=== PATIENT | female | born 1990 | race Two or more races ===

== ENCOUNTER 2024-03-24 14:54 | Inpatient (IN) | payer OTHER ==
[2024-03-24] MEDS ORDERED: ACETAMINOPHEN 325 MG TABLET (FP) ONE (16:24)
[2024-03-24] MEDS: ACETAMINOPHEN 325 MG TABLET (FP) PO ONE (16:52)
[2024-03-24 16:56] LABS: PH,URINE 6.5 (5.0-8.0); URINE APPEARANCE CLEAR; URINE BILIRUBIN NEGATIVE (NEGATIVE); URINE COLOR YELLOW; URINE GLUCOSE (UA) NEGATIVE (NEGATIVE); URINE KETONE NEGATIVE (NEGATIVE); URINE LEUK ESTERASE NEGATIVE (NEGATIVE); URINE NITRITE NEGATIVE (NEGATIVE); URINE PROTEIN TRACE (NEGATIVE)
[2024-03-24 16:57] LABS: HCG,QUALITATIVE URINE Negative
[2024-03-24] MEDS ORDERED: ACETAMINOPHEN INJECTION 100 ML IVPB ONE ×2 (18:14→21:38)
[2024-03-24] MEDS ORDERED: ONDANSETRON 4 MG/2 ML VIAL ONE (18:14)
[2024-03-24 18:18] LABS: BASO % 0.6 % (0-2.0); HEMATOCRIT 23.7 % (32.4-45.2); LYMPH % 19.2 % (8-40); MCHC 28.6 g/dl (32.0-36.0); MEAN CELL VOLUME 66.8 fl (80-96); MEAN PLT VOLUME 8.2 fl (7.5-11.1); MONO % 5.7 % (3.8-10.2); NEUT % 73.5 % (42.8-82.8); PLATELET COUNT 349 10^3/uL (134-434); RBC 3.55 M/mm3 (3.60-5.2); RDW 18.7 % (11.6-15.6); WHITE BLOOD COUNT 12.9 K/mm3 (4.0-10.0)
[2024-03-24 18:20] LABS: MCH 19.1 pg (25.7-33.7)
[2024-03-24] MEDS: ACETAMINOPHEN 1000 MG/100 ML BAG IVPB ONE ×2 (18:21→21:43)
[2024-03-24] MEDS: ONDANSETRON 4 MG/2 ML VIAL IVPUSH ONE (18:21)
[2024-03-24 18:22] LABS: HEMOGLOBIN 6.8 GM/dL (10.7-15.3)
[2024-03-24 18:36] LABS: POTASSIUM 3.8 mmol/L (3.5-5.1)
[2024-03-24 18:38] LABS: ALBUMIN 3.2 g/dl (3.4-5.0); BLOOD UREA NITROGEN 10.5 mg/dL (7-18); CALCIUM 9.5 mg/dL (8.5-10.1)
[2024-03-24 18:40] LABS: ANISOCYTOSIS 1+; MACROCYTOSIS 0
[2024-03-24 18:41] LABS: CREATININE 0.8 mg/dL (0.55-1.3)
[2024-03-24 18:43] LABS: BILIRUBIN,TOTAL 0.2 mg/dL (0.2-1); TOT PROT 7.4 g/dl (6.4-8.2)
[2024-03-24 18:48] LABS: BASO % 0.2 % (0-2.0); EOS % 1.7 % (0-4.5); HEMATOCRIT 22.2 % (32.4-45.2); LYMPH % 19.2 % (8-40); MCHC 28.7 g/dl (32.0-36.0); MEAN CELL VOLUME 66.7 fl (80-96); MEAN PLT VOLUME 7.5 fl (7.5-11.1); MONO % 5.9 % (3.8-10.2); PLATELET COUNT 329 10^3/uL (134-434); RBC 3.33 M/mm3 (3.60-5.2); RDW 18.6 % (11.6-15.6); WHITE BLOOD COUNT 11.5 K/mm3 (4.0-10.0)
[2024-03-24 18:49] LABS: MCH 19.2 pg (25.7-33.7)
[2024-03-24 18:51] LABS: HEMOGLOBIN 6.4 GM/dL (10.7-15.3)
[2024-03-24] MEDS ORDERED: morphine SULFATE 4 MG/ML VIAL ONE (20:58)
[2024-03-24] MEDS ORDERED: PIPERACILLIN/TAZOB 4.5 GM 4.5 GM/100 ML BAG IVPB ONE (20:58)
[2024-03-24] MEDS: morphine CARPU-JECT 4 MG/1 ML DISP.SYRIN IVPUSH ONE (21:02)
[2024-03-24] MEDS: PIPERACILLIN/TAZOB 4.5 GM 4.5 GM in DEXTROSE 5%-WATER 100 ML IVPB ONE (21:02)
[2024-03-24] MEDS ORDERED: ONDANSETRON 4 MG/2 ML VIAL IVPUSH PRN (23:19)
[2024-03-24] MEDS: DEXTROSE 5%-NORMAL SALINE 1,000 ML IV SCH (23:49)
[2024-03-24] MEDS: SODIUM CHLORIDE 1,000 ML IV STA (23:57)
[2024-03-25] MEDS: ACETAMINOPHEN 1000 MG/100 ML BAG IVPB PRN (04:43)
[2024-03-25] MEDS: PIPERACILLIN/TAZOB 3.375 GM 3.375 GM in DEXTROSE 5%-WATER - 50 ML IVPB SCH ×3 (04:43→17:32)
[2024-03-25] MEDS ORDERED: PROPOFOL 20 ML ONE (09:55)
[2024-03-25] MEDS ORDERED: FENTANYL CITRATE/PF 50 MCG/ML VIAL ONE ×3 (09:55→13:17)
[2024-03-25] MEDS ORDERED: ROCURONIUM BROMIDE 50 MG/5 ML SYRINGE ONE (09:55)
[2024-03-25] MEDS ORDERED: DEXAMETHASONE SOD PHOSPHATE 4 MG/1 ML VIAL ONE (09:55)
[2024-03-25] MEDS ORDERED: MIDAZOLAM HCL 2 MG/2 ML SINGLE DOSE VIAL ONE (09:55)
[2024-03-25] MEDS ORDERED: GLYCOPYRROLATE 0.2 MG/1 ML VIAL ONE (10:36)
[2024-03-25] MEDS ORDERED: KETOROLAC TROMETHAMINE 30 MG/1 ML VIAL ONE (10:36)
[2024-03-25] MEDS ORDERED: ONDANSETRON 4 MG/2 ML VIAL ONE (10:36)
[2024-03-25] MEDS: LACTATED RINGERS SOLUTION 1,000 ML/1,000 ML INFUS.BAG IV SCH (10:48)
[2024-03-25] MEDS ORDERED: BUPIVACAINE HCL/PF 0.25% (2.5MG/ML) 10 ML VIAL ONE (11:04)
[2024-03-25 11:07] LABS: RETICULOCYTES 1.45 % (0.5-1.5)
[2024-03-25] MEDS ORDERED: oxyCODONE HCL 5 MG TABLET PO PRN (11:18)
[2024-03-25] MEDS ORDERED: ONDANSETRON 4 MG/2 ML VIAL IVPUSH PRN ×2 (11:18→14:25)
[2024-03-25 12:00] LABS: BASO % 0.4 % (0-2.0); EOS % 1.7 % (0-4.5); HEMATOCRIT 28.5 % (32.4-45.2); HEMOGLOBIN 8.7 GM/dL (10.7-15.3); LYMPH % 12.1 % (8-40); MCH 21.9 pg (25.7-33.7); MCHC 30.5 g/dl (32.0-36.0); MEAN CELL VOLUME 71.6 fl (80-96); MEAN PLT VOLUME 7.3 fl (7.5-11.1); MONO % 5.2 % (3.8-10.2); NEUT % 80.6 % (42.8-82.8); PLATELET COUNT 309 10^3/uL (134-434); RBC 3.98 M/mm3 (3.60-5.2); RDW 22.5 % (11.6-15.6); WHITE BLOOD COUNT 11.9 K/mm3 (4.0-10.0)
[2024-03-25] MEDS ORDERED: LIDOCAINE HCL 1%, 10 MG/ML (20ML VIAL) ONE (12:16)
[2024-03-25] MEDS ORDERED: HYDROmorphone HCl 2 MG/ML VIAL ONE (12:16)
[2024-03-25] MEDS: LIDOCAINE HCL 1%, 10 MG/ML (20ML VIAL) NR ONE ×3 (12:19)
[2024-03-25] MEDS ORDERED: NEOSTIGMINE METHYLSULFATE 0.5 MG/1 ML - 10 ML MDV ONE (12:19)
[2024-03-25] MEDS: BUPIVACAINE HCL/PF 0.5% (5MG/ML) 10 ML VIAL IJ ONE ×3 (12:27)
[2024-03-25] MEDS ORDERED: SUGAMMADEX SODIUM 200 MG/2 ML VIAL ONE (12:59)
[2024-03-25] MEDS ORDERED: ACETAMINOPHEN INJECTION 100 ML IVPB ONE (14:35)
[2024-03-25] MEDS: ACETAMINOPHEN 1000 MG/100 ML BAG IVPB SCH (14:40)
[2024-03-25] MEDS: LACTATED RINGERS SOLUTION 1,000 ML IV SCH ×2 (14:50→16:31)
[2024-03-25] MEDS: oxyCODONE HCL 5 MG TABLET PO PRN (17:32)
[2024-03-25] MEDS ORDERED: PIPERACILLIN/TAZOB 3.375 GM 3.375 GM in DEXTROSE 5%-WATER - 50 ML IVPB SCH (18:00)
[2024-03-26 09:01] LABS: BASO % 0.6 % (0-2.0); EOS % 0.2 % (0-4.5); HEMATOCRIT 28.6 % (32.4-45.2); HEMOGLOBIN 8.8 GM/dL (10.7-15.3); LYMPH % 14.7 % (8-40); MCH 21.8 pg (25.7-33.7); MCHC 30.9 g/dl (32.0-36.0); MEAN CELL VOLUME 70.7 fl (80-96); MONO % 4.7 % (3.8-10.2); NEUT % 79.8 % (42.8-82.8); PLATELET COUNT 319 10^3/uL (134-434); RBC 4.04 M/mm3 (3.60-5.2); RDW 21.9 % (11.6-15.6); WHITE BLOOD COUNT 12.1 K/mm3 (4.0-10.0)
[2024-03-26 09:16] LABS: POTASSIUM 3.7 mmol/L (3.5-5.1)
[2024-03-26 09:24] LABS: CALCIUM 9.2 mg/dL (8.5-10.1)
[2024-03-26 09:25] LABS: BLOOD UREA NITROGEN 5.3 mg/dL (7-18)
[2024-03-26 09:27] LABS: CREATININE 0.5 mg/dL (0.55-1.3)
[2024-03-26 09:29] LABS: BILIRUBIN,TOTAL 0.5 mg/dL (0.2-1); TOT PROT 6.4 g/dl (6.4-8.2)
[2024-03-26 09:32] LABS: ALBUMIN 2.5 g/dl (3.4-5.0)
[2024-03-26] MEDS: HYDROmorphone HCl 2 MG/ML VIAL IVPB ONE (14:08)
[2024-03-26] MEDS: PIPERACILLIN/TAZOB 3.375 GM 3.375 GM in DEXTROSE 5%-WATER - 50 ML IVPB SCH (14:51)
[2024-03-26] MEDS: oxyCODONE HCL 5 MG TABLET PO PRN (16:14)
[2024-03-26] MEDS: ACETAMINOPHEN 325 MG TABLET (FP) PO SCH (16:16)
[2024-03-26] MEDS: HYDROmorphone HCl 2 MG/ML VIAL IVPB PRN (20:00)
[2024-03-27] MEDS: ONDANSETRON 4 MG/2 ML VIAL IVPUSH PRN (01:41)
[2024-03-27] MEDS: ONDANSETRON 4 MG/2 ML VIAL IVPUSH ONE (05:22)
[2024-03-27] MEDS: LACTATED RINGERS SOLUTION 1,000 ML IV SCH (09:48)
[2024-03-27] MEDS: ACETAMINOPHEN 1000 MG/100 ML BAG IVPB PRN (13:25)
[2024-03-27 16:41] LABS: PH,URINE 6.5 (5.0-8.0); URINE APPEARANCE CLEAR; URINE BILIRUBIN NEGATIVE (NEGATIVE); URINE COLOR YELLOW; URINE GLUCOSE (UA) NEGATIVE (NEGATIVE); URINE KETONE NEGATIVE (NEGATIVE); URINE LEUK ESTERASE NEGATIVE (NEGATIVE); URINE NITRITE NEGATIVE (NEGATIVE); URINE PROTEIN NEGATIVE (NEGATIVE)
[2024-03-27 20:30] LABS: BASO % 0.7 % (0-2.0); EOS % 1.1 % (0-4.5); HEMATOCRIT 28.9 % (32.4-45.2); HEMOGLOBIN 8.9 GM/dL (10.7-15.3); LYMPH % 18.7 % (8-40); MCH 21.9 pg (25.7-33.7); MCHC 30.7 g/dl (32.0-36.0); MEAN CELL VOLUME 71.2 fl (80-96); MEAN PLT VOLUME 7.9 fl (7.5-11.1); MONO % 6.3 % (3.8-10.2); NEUT % 73.2 % (42.8-82.8); PLATELET COUNT 380 10^3/uL (134-434); RBC 4.06 M/mm3 (3.60-5.2); RDW 22.8 % (11.6-15.6); WHITE BLOOD COUNT 11.8 K/mm3 (4.0-10.0)
[2024-03-27 20:50] LABS: POTASSIUM 3.6 mmol/L (3.5-5.1)
[2024-03-27 20:53] LABS: ALBUMIN 2.4 g/dl (3.4-5.0)
[2024-03-27 20:54] LABS: BLOOD UREA NITROGEN 7.8 mg/dL (7-18)
[2024-03-27 20:56] LABS: CREATININE 0.5 mg/dL (0.55-1.3); PHOSPHOROUS 3.9 mg/dL (2.5-4.9)
[2024-03-27 20:58] LABS: BILIRUBIN,TOTAL 0.5 mg/dL (0.2-1); TOT PROT 6.1 g/dl (6.4-8.2)
[2024-03-27 21:32] LABS: ANISOCYTOSIS 3+; MACROCYTOSIS 1+; OVALOCYTE 1+
[2024-03-28 08:41] VITALS: RESP 18
[2024-03-28 09:45] LABS: BASO % 0.7 % (0-2.0); EOS % 1.4 % (0-4.5); HEMATOCRIT 30.6 % (32.4-45.2); HEMOGLOBIN 9.4 GM/dL (10.7-15.3); LYMPH % 17.9 % (8-40); MCHC 30.6 g/dl (32.0-36.0); MEAN CELL VOLUME 71.9 fl (80-96); MEAN PLT VOLUME 7.9 fl (7.5-11.1); MONO % 6.8 % (3.8-10.2); NEUT % 73.2 % (42.8-82.8); PLATELET COUNT 405 10^3/uL (134-434); RBC 4.25 M/mm3 (3.60-5.2); RDW 22.8 % (11.6-15.6); WHITE BLOOD COUNT 9.8 K/mm3 (4.0-10.0)
[2024-03-28] MEDS ORDERED: HYDROmorphone HCl 2 MG/ML VIAL IVPB PRN (10:00)
[2024-03-28 10:04] LABS: POTASSIUM 3.6 mmol/L (3.5-5.1)
[2024-03-28 10:08] LABS: BLOOD UREA NITROGEN 5.6 mg/dL (7-18)
[2024-03-28 10:09] LABS: ALBUMIN 2.6 g/dl (3.4-5.0)
[2024-03-28 10:12] LABS: CREATININE 0.6 mg/dL (0.55-1.3)
[2024-03-28 10:13] LABS: BILIRUBIN,TOTAL 0.4 mg/dL (0.2-1); TOT PROT 6.7 g/dl (6.4-8.2)
[2024-03-28] MEDS: HYDROmorphone HCl 2 MG/ML VIAL IVPB ONE (10:32)
[2024-03-28] MEDS: FAMOTIDINE 20 MG/50 ML IVPB 20 MG/50 ML MG IVPB ONE (11:01)
[2024-03-28] MEDS: DEXTROSE 5%-0.45% SALINE 1,000 ML IV SCH (11:02)
[2024-03-28] MEDS: ACETAMINOPHEN 1000 MG/100 ML BAG IVPB ONE (13:20)
[2024-03-28] MEDS: oxyCODONE HCL 5 MG TABLET PO PRN (15:02)
[2024-03-28] MEDS: SIMETHICONE 80 MG TAB.CHEW (FP) PO PRN (15:03)
[2024-03-28] MEDS: HYDROmorphone HCl 2 MG/ML VIAL IVPB PRN (18:15)
[2024-03-29] MEDS: HYDROmorphone HCL CARPU-JECT 2 MG/1 ML DISP.SYRIN IVPB PRN ×2 (01:56→17:11)
[2024-03-29 08:46] LABS: PH,URINE 7.5 (5.0-8.0); URINE APPEARANCE CLEAR; URINE BILIRUBIN NEGATIVE (NEGATIVE); URINE COLOR YELLOW; URINE GLUCOSE (UA) NEGATIVE (NEGATIVE); URINE KETONE NEGATIVE (NEGATIVE); URINE LEUK ESTERASE NEGATIVE (NEGATIVE); URINE NITRITE NEGATIVE (NEGATIVE); URINE PROTEIN NEGATIVE (NEGATIVE)
[2024-03-29] MEDS: PANTOPRAZOLE SODIUM 40 MG VIAL IVPUSH SCH (09:29)
[2024-03-30 08:43] LABS: HEMATOCRIT 29.8 % (32.4-45.2); HEMOGLOBIN 8.9 GM/dL (10.7-15.3); MCH 21.9 pg (25.7-33.7); MCHC 29.8 g/dl (32.0-36.0); MEAN CELL VOLUME 73.4 fl (80-96); MEAN PLT VOLUME 8.3 fl (7.5-11.1); PLATELET COUNT 426 10^3/uL (134-434); RBC 4.06 M/mm3 (3.60-5.2); RDW 23.1 % (11.6-15.6); WHITE BLOOD COUNT 9.9 K/mm3 (4.0-10.0)
[2024-03-30 08:57] LABS: POTASSIUM 3.7 mmol/L (3.5-5.1)
[2024-03-30 09:01] LABS: BLOOD UREA NITROGEN 3.4 mg/dL (7-18)
[2024-03-30 09:02] LABS: ALBUMIN 2.7 g/dl (3.4-5.0); CALCIUM 9.2 mg/dL (8.5-10.1)
[2024-03-30 09:05] LABS: BILIRUBIN,TOTAL 0.4 mg/dL (0.2-1); CREATININE 0.6 mg/dL (0.55-1.3); TOT PROT 6.9 g/dl (6.4-8.2)
[2024-03-30] MEDS ORDERED: oxyCODONE HCL 5 MG TABLET PO PRN (11:20)
[2024-03-30] MEDS: KETOROLAC TROMETHAMINE 30 MG/1 ML VIAL IVPUSH SCH ×2 (11:28→19:30)
[2024-03-30] MEDS: ACETAMINOPHEN 1000 MG/100 ML BAG IVPB SCH ×2 (13:26→13:37)
[2024-03-31 09:19] LABS: BASO % 0.9 % (0-2.0); HEMATOCRIT 29.2 % (32.4-45.2); HEMOGLOBIN 9.1 GM/dL (10.7-15.3); LYMPH % 16.2 % (8-40); MCH 22.4 pg (25.7-33.7); MCHC 31.2 g/dl (32.0-36.0); MEAN CELL VOLUME 71.9 fl (80-96); MEAN PLT VOLUME 7.9 fl (7.5-11.1); MONO % 4.3 % (3.8-10.2); NEUT % 76.6 % (42.8-82.8); PLATELET COUNT 455 10^3/uL (134-434); RBC 4.06 M/mm3 (3.60-5.2); RDW 23.8 % (11.6-15.6); WHITE BLOOD COUNT 10.8 K/mm3 (4.0-10.0)
[2024-03-31 11:15] LABS: ANISOCYTOSIS 3+; MACROCYTOSIS 0
[2024-03-31] MEDS: guaiFENesin 600 MG TABLET.ER (FP) PO SCH (12:04)
[2024-03-31 14:13] VITALS: BMI 10.6
[2024-03-31] MEDS: POLYETHYLENE GLYCOL (HEALTHYLAX) 3350 17 GM PACKET PO SCH ×2 (16:26→22:17)
[2024-03-31] MEDS: SENNOSIDES 8.6MG TABLET (FP) PO SCH (22:17)
[2024-04-01 08:51] LABS: HEMATOCRIT 30.2 % (32.4-45.2); HEMOGLOBIN 8.9 GM/dL (10.7-15.3); MCH 21.5 pg (25.7-33.7); MCHC 29.4 g/dl (32.0-36.0); MEAN CELL VOLUME 73.3 fl (80-96); MEAN PLT VOLUME 8.5 fl (7.5-11.1); PLATELET COUNT 503 10^3/uL (134-434); RBC 4.12 M/mm3 (3.60-5.2); RDW 24.1 % (11.6-15.6); WHITE BLOOD COUNT 11.8 K/mm3 (4.0-10.0)
[2024-04-01 09:38] LABS: POTASSIUM 4.3 mmol/L (3.5-5.1)
[2024-04-01 09:40] LABS: ALBUMIN 2.8 g/dl (3.4-5.0); BLOOD UREA NITROGEN 14.4 mg/dL (7-18); CALCIUM 9.4 mg/dL (8.5-10.1)
[2024-04-01 09:43] LABS: CREATININE 0.7 mg/dL (0.55-1.3)
[2024-04-01 09:45] LABS: BILIRUBIN,TOTAL 0.3 mg/dL (0.2-1)
[2024-04-01 11:13] VITALS: PULSE 61
[2024-04-01 15:07] VITALS: BP 124/75; TEMP 98.4
== END 2024-04-01 15:26 | disposition home or self-care (01) | DRG 710 ==
LOC: JER 14:54 → JERBED 20:39 → J6S 03-25 00:46
PROVIDERS: ADMIT Internal Medicine; ATTEND Internal Medicine
PROC: 30233N1 Transfusion of Nonautologous Red Blood Cells into Peripheral Vein, Percutaneous Approach (ICD-10-PCS; 2024-03-24)
PROC: 0DTJ4ZZ Resection of Appendix, Percutaneous Endoscopic Approach (ICD-10-PCS; principal; 2024-03-25 11:00)
DX: A41.89 Other specified sepsis (principal); K35.33 Acute appendicitis with perforation, localized peritonitis, and gangrene, with abscess; D50.9 Iron deficiency anemia, unspecified; K62.5 Hemorrhage of anus and rectum; I10 Essential (primary) hypertension; K91.89 Other postprocedural complications and disorders of digestive system; K56.7 Ileus, unspecified; Y83.8 Other surgical procedures as the cause of abnormal reaction of the patient, or of later complication, without mention of misadventure at the time of the procedure; K59.00 Constipation, unspecified; R11.14 Bilious vomiting; D27.0 Benign neoplasm of right ovary; B95.2 Enterococcus as the cause of diseases classified elsewhere; B96.20 Unspecified Escherichia coli [E. coli] as the cause of diseases classified elsewhere; D72.829 Elevated white blood cell count, unspecified; N92.0 Excessive and frequent menstruation with regular cycle
CPT/HCPCS: 36415; 36430; 71045-TC-FY; 74018-TC-FY; 74177-TC; 80053; 81003; 82607; 82728; 82746; 83540; 83550; 83735; 84100; 84703; 85025; 85027; 85045; 86850; 86900; 86901; 86922; 87070; 87075; 87076; 87086; 87186; 87205; 88304-TC; 93005; 93010; 94760; 99285-25; J0131; P9038; P9058; Q9967

== ENCOUNTER 2024-04-15 17:07 | Observation (INO) | payer OTHER ==
[2024-04-15] MEDS ORDERED: ALBUTEROL SO4 0.5 % INH SOLN 2.5 MG/0.5 ML VIAL.NEB. NEB ONE (17:13)
[2024-04-15] MEDS ORDERED: IPRATROPIUM BR 0.02% 0.5 MG/2.5 ML VIAL.NEB. NEB ONE (17:13)
[2024-04-15] MEDS: ALBUTEROL SO4 2.5/IPRATROPIUM 0.5 INH SOL 3 ML VIAL.NEB. NEB SCH (17:15)
[2024-04-15] MEDS ORDERED: RAPID SEQUENCE INTUBATION KIT NR ONE (17:17)
[2024-04-15] MEDS ORDERED: EPINEPHrine/PF 1 MG/1 ML (1:1,000) AMPULE ONE (17:19)
[2024-04-15] MEDS: EPINEPHrine 1:1,000 1 MG/ML VIAL IM ONE (17:20)
[2024-04-15] MEDS ORDERED: METOCLOPRAMIDE HCL INJECTION 10 MG/2 ML VIAL ONE (17:29)
[2024-04-15] MEDS: SODIUM CHLORIDE 0.9% 1000 ML INFUS.BAG IV ONE (17:35)
[2024-04-15 17:46] LABS: VENOUS BASE EXCESS -0.3 mmol/L (-2-2); VENOUS O2 SATURATION 49.7 % (70-80); VENOUS PCO2 39.8 mmHg (38-52); VENOUS PH 7.405 (7.310-7.410)
[2024-04-15 17:52] LABS: BASO % 0.3 % (0-2.0); HEMATOCRIT 32.5 % (32.4-45.2); HEMOGLOBIN 10.1 GM/dL (10.7-15.3); MCH 23.5 pg (25.7-33.7); MCHC 31.2 g/dl (32.0-36.0); MEAN CELL VOLUME 75.4 fl (80-96); MEAN PLT VOLUME 8.4 fl (7.5-11.1); MONO % 7.2 % (3.8-10.2); NEUT % 58.5 % (42.8-82.8); PLATELET COUNT 385 10^3/uL (134-434); RBC 4.31 M/mm3 (3.60-5.2); RDW 26.2 % (11.6-15.6); WHITE BLOOD COUNT 8.5 K/mm3 (4.0-10.0)
[2024-04-15 17:58] LABS: INR 1.16 (0.83-1.09)
[2024-04-15 18:00] LABS: ACTIVATED PTT 31.4 SECONDS (25.2-36.5)
[2024-04-15] MEDS: METOCLOPRAMIDE HCL INJECTION 10 MG/2 ML VIAL IVPUSH ONE (18:07)
[2024-04-15 18:54] LABS: PH,URINE 5.5 (5.0-8.0); URINE APPEARANCE CLEAR; URINE BILIRUBIN NEGATIVE (NEGATIVE); URINE COLOR YELLOW; URINE GLUCOSE (UA) NEGATIVE (NEGATIVE); URINE KETONE NEGATIVE (NEGATIVE); URINE LEUK ESTERASE NEGATIVE (NEGATIVE); URINE NITRITE NEGATIVE (NEGATIVE); URINE PROTEIN NEGATIVE (NEGATIVE); URINE UROBILINOGEN 0.2 mg/dL (0.2-1.0)
[2024-04-15 18:55] LABS: OPIATES, URI NEGATIVE (NEGATIVE); PHENCYCLIDINE,URINE NEGATIVE (NEGATIVE)
[2024-04-15 18:56] LABS: METHADONE, UR NEGATIVE (NEGATIVE); URINE AMPHETAMINES NEGATIVE (NEGATIVE); URINE BENZODIAZEPINES NEGATIVE (NEGATIVE)
[2024-04-15] MEDS: ALBUTEROL SO4 2.5/IPRATROPIUM 0.5 INH SOL 3 ML VIAL.NEB. NEB ONE (18:58)
[2024-04-15 19:21] LABS: COCAINE, UR POSITIVE (NEGATIVE); URINE BARBITURATES NEGATIVE (NEGATIVE)
[2024-04-15 20:38] LABS: BASO % 0.6 % (0-2.0); EOS % 2.8 % (0-4.5); HEMATOCRIT 29.5 % (32.4-45.2); HEMOGLOBIN 9.3 GM/dL (10.7-15.3); LYMPH % 28.9 % (8-40); MCH 23.4 pg (25.7-33.7); MCHC 31.4 g/dl (32.0-36.0); MEAN CELL VOLUME 74.6 fl (80-96); MEAN PLT VOLUME 7.6 fl (7.5-11.1); MONO % 7.4 % (3.8-10.2); NEUT % 60.3 % (42.8-82.8); PLATELET COUNT 323 10^3/uL (134-434); RBC 3.95 M/mm3 (3.60-5.2); WHITE BLOOD COUNT 9.1 K/mm3 (4.0-10.0)
[2024-04-15] MEDS ORDERED: ACETAMINOPHEN INJECTION 100 ML IVPB ONE (21:34)
[2024-04-15] MEDS: ACETAMINOPHEN 1000 MG/100 ML BAG IVPB ONE (21:46)
[2024-04-15] MEDS: LACTATED RINGERS SOLUTION 1000 ML INFUS.BAG IV ONE (21:46)
[2024-04-15 22:17] LABS: ANISOCYTOSIS 2+; OVALOCYTE 1+; TEAR DROP CELLS 1+
[2024-04-15 22:19] LABS: PLATELET ESTIMATE ADEQUATE
[2024-04-15] MEDS ORDERED: SIMETHICONE 40 MG/0.6 ML BOTTLE PO PRN (23:31)
[2024-04-16] MEDS: PANTOPRAZOLE SODIUM 40 MG VIAL IVPUSH ONE (00:09)
[2024-04-16] MEDS: SIMETHICONE 80 MG TAB.CHEW (FP) PO ONE (00:09)
[2024-04-16 00:25] LABS: ERYTHROCYTE SEDIMENTATION RATE 24 mm/hr (0-20)
[2024-04-16] MEDS: LACTATED RINGERS SOLUTION 1,000 ML/1,000 ML INFUS.BAG IV SCH (00:29)
[2024-04-16] MEDS: MAG HYDROX/AL HYDROX/SIMETH 30 ML UNIT-DOSE CUP PO ONE (00:30)
[2024-04-16] MEDS: MINERAL OIL ENEMA 133 ML ENEMA RC ONE ×2 (00:56→05:51)
[2024-04-16] MEDS: MAGNESIUM CITRATE 300 ML BOTTLE PO ONE (00:56)
[2024-04-16] MEDS: PIPERACILLIN/TAZOB 3.375 GM 3.375 GM in DEXTROSE 5%-WATER - 50 ML IVPB SCH ×2 (01:23→15:44)
[2024-04-16 03:27] VITALS: BMI 26.4
[2024-04-16] MEDS: SIMETHICONE 40 MG/0.6 ML BOTTLE PO SCH (06:29)
[2024-04-16 06:49] LABS: BASO % 1.2 % (0-2.0); EOS % 3.1 % (0-4.5); HEMATOCRIT 24.4 % (32.4-45.2); HEMOGLOBIN 7.6 GM/dL (10.7-15.3); LYMPH % 41.9 % (8-40); MCH 23.6 pg (25.7-33.7); MCHC 31.3 g/dl (32.0-36.0); MEAN CELL VOLUME 75.6 fl (80-96); MEAN PLT VOLUME 8.5 fl (7.5-11.1); MONO % 6.3 % (3.8-10.2); NEUT % 47.5 % (42.8-82.8); PLATELET COUNT 258 10^3/uL (134-434); RBC 3.22 M/mm3 (3.60-5.2); RDW 25.9 % (11.6-15.6); WHITE BLOOD COUNT 5.7 K/mm3 (4.0-10.0)
[2024-04-16 07:26] LABS: POTASSIUM 3.9 mmol/L (3.5-5.1)
[2024-04-16 08:29] LABS: BLOOD UREA NITROGEN 5.5 mg/dL (7-18); MAGNESIUM 1.7 mg/dL (1.8-2.4)
[2024-04-16 08:35] LABS: PHOSPHOROUS 3.2 mg/dL (2.5-4.9)
[2024-04-16 08:36] LABS: CREATININE 0.5 mg/dL (0.55-1.3)
[2024-04-16 08:37] LABS: BILIRUBIN,TOTAL 0.3 mg/dL (0.2-1)
[2024-04-16 09:00] LABS: ALBUMIN 2.5 g/dl (3.4-5.0); CALCIUM 8.1 mg/dL (8.5-10.1); TOT PROT 5.1 g/dl (6.4-8.2)
[2024-04-16 09:12] LABS: CHLORIDE 106 mmol/L (98-107); POTASSIUM 5.1 mmol/L (3.5-5.1); SODIUM 136 mmol/L (136-145)
[2024-04-16 09:14] LABS: ANION GAP 12 mmol/L (4-13); BLOOD UREA NITROGEN 9.4 mg/dL (7-18); CALCIUM 9.4 mg/dL (8.5-10.1); CO2 18 mmol/L (21-32)
[2024-04-16 09:15] LABS: ALBUMIN 3.8 g/dl (3.4-5.0); GLUCOSE,RANDOM 93 mg/dL (74-106); MAGNESIUM 2.1 mg/dL (1.8-2.4)
[2024-04-16 09:17] LABS: CREATININE 0.8 mg/dL (0.55-1.3); SGPT/ALT 19 U/L (13-61)
[2024-04-16 09:18] LABS: SGOT/AST 41 U/L (15-37)
[2024-04-16 09:19] LABS: BILIRUBIN,TOTAL 0.3 mg/dL (0.2-1); TOT PROT 8.1 g/dl (6.4-8.2)
[2024-04-16 09:20] LABS: ALK PHOS 92 U/L (45-117)
[2024-04-16] MEDS: PANTOPRAZOLE SODIUM 40 MG VIAL IVPUSH SCH (10:40)
[2024-04-16 13:11] LABS: POTASSIUM 3.8 mmol/L (3.5-5.1)
[2024-04-16 13:14] LABS: CALCIUM 8.8 mg/dL (8.5-10.1)
[2024-04-16 13:15] LABS: BLOOD UREA NITROGEN 5.5 mg/dL (7-18)
[2024-04-16 13:18] LABS: CREATININE 0.6 mg/dL (0.55-1.3)
[2024-04-16] MEDS: MAGNESIUM SULF 50% (8.12 MEQ/2 ML-1 GM VIAL) IVPB ONE (17:00)
[2024-04-17 06:35] LABS: HEMATOCRIT 36.2 % (32.4-45.2); HEMOGLOBIN 11.5 GM/dL (10.7-15.3); MCH 24.6 pg (25.7-33.7); MCHC 31.9 g/dl (32.0-36.0); MEAN CELL VOLUME 77.2 fl (80-96); MEAN PLT VOLUME 8.9 fl (7.5-11.1); PLATELET COUNT 266 10^3/uL (134-434); RBC 4.69 M/mm3 (3.60-5.2); RDW 25.4 % (11.6-15.6); WHITE BLOOD COUNT 6.8 K/mm3 (4.0-10.0)
[2024-04-17 06:53] LABS: POTASSIUM 3.9 mmol/L (3.5-5.1)
[2024-04-17 06:54] LABS: CALCIUM 8.8 mg/dL (8.5-10.1)
[2024-04-17 06:56] LABS: BLOOD UREA NITROGEN 4.6 mg/dL (7-18); MAGNESIUM 2.2 mg/dL (1.8-2.4)
[2024-04-17 06:58] LABS: CREATININE 0.5 mg/dL (0.55-1.3)
[2024-04-17 06:59] LABS: PHOSPHOROUS 3.7 mg/dL (2.5-4.9)
[2024-04-17 07:00] LABS: BILIRUBIN,TOTAL 0.5 mg/dL (0.2-1); TOT PROT 6.8 g/dl (6.4-8.2)
[2024-04-17 07:27] LABS: ALBUMIN 3.1 g/dl (3.4-5.0)
[2024-04-17] MEDS: IRON SUCROSE INJECTION 200 MG in SODIUM CHLORIDE 100 ML IVPB ONE (08:55)
[2024-04-17] MEDS: PANTOPRAZOLE 40 MG TABLET PO SCH (09:07)
[2024-04-17] MEDS: POLYETHYLENE GLYCOL (HEALTHYLAX) 3350 17 GM PACKET PO SCH (09:08)
[2024-04-17 14:36] VITALS: BP 131/56; PULSE 55; RESP 19; TEMP 98.4
== END 2024-04-17 16:23 | disposition home or self-care (01) ==
LOC: JER 17:07 → JERBED 19:00 → J4S 23:35
PROVIDERS: ADMIT Internal Medicine; ATTEND Internal Medicine
PROC: 30233N1 Transfusion of Nonautologous Red Blood Cells into Peripheral Vein, Percutaneous Approach (ICD-10-PCS; principal; 2024-04-15)
PROC: 3E033NZ Introduction of Analgesics, Hypnotics, Sedatives into Peripheral Vein, Percutaneous Approach (ICD-10-PCS; 2024-04-15)
PROC: 3E0F7GC Introduction of Other Therapeutic Substance into Respiratory Tract, Via Natural or Artificial Opening (ICD-10-PCS; 2024-04-15)
PROC: 3E023GC Introduction of Other Therapeutic Substance into Muscle, Percutaneous Approach (ICD-10-PCS; 2024-04-15)
PROC: 3E0337Z Introduction of Electrolytic and Water Balance Substance into Peripheral Vein, Percutaneous Approach (ICD-10-PCS; 2024-04-15)
PROC: 3E03329 Introduction of Other Anti-infective into Peripheral Vein, Percutaneous Approach (ICD-10-PCS; 2024-04-15)
DX: R55 Syncope and collapse (principal); D64.9 Anemia, unspecified; N92.1 Excessive and frequent menstruation with irregular cycle; R10.13 Epigastric pain; Z90.49 Acquired absence of other specified parts of digestive tract; I10 Essential (primary) hypertension; F17.200 Nicotine dependence, unspecified, uncomplicated
CPT/HCPCS: 0241U-QW; 36415; 36430; 36511; 70450-TC; 71045-TC-FY; 71275-TC; 74177-TC; 76830-TC; 80048; 80053; 80307; 81003; 82272; 82550; 82803; 83605; 83690; 83735; 84100; 84443; 84484; 84703; 85025; 85027; 85610; 85651; 85730; 86140; 86850; 86900; 86901; 86922; 87040; 87086; 93005; 93010; 93306-TC; 94640; 96361; 96365; 96367; 96372; 96375; 96376; 99285-25; G0378; J0131; J1756; P9038; P9058; Q9967

== ENCOUNTER 2025-02-12 22:56 | Emergency (ER) | payer OTHER ==
[2025-02-12 23:00] VITALS: BP 103/64; PULSE 86; RESP 18; TEMP 98.1; BMI 24.2
[2025-02-12] MEDS: ONDANSETRON 4 MG/2 ML VIAL IVPUSH ONE (23:22)
[2025-02-12] MEDS: FAMOTIDINE 20 MG/50 ML IVPB 20 MG/50 ML MG IVPB ONE (23:22)
[2025-02-12] MEDS: ACETAMINOPHEN 1000 MG/100 ML BAG IVPB ONE (23:22)
[2025-02-12] MEDS ORDERED: ACETAMINOPHEN INJECTION 100 ML ONE (23:23)
[2025-02-12] MEDS ORDERED: ONDANSETRON 4 MG/2 ML VIAL ONE (23:24)
[2025-02-12] MEDS ORDERED: FAMOTIDINE 20 MG/50 ML IVPB 20 MG/50 ML MG IVPB ONE (23:24)
[2025-02-12 23:27] LABS: HCG,QUALITATIVE URINE Negative
[2025-02-12 23:36] LABS: EPI CELLS 6 /uL (0-25.1); HYALINE CASTS 0 /uL (0-3.1); PH,URINE 5.5 (5.0-8.0); URINE APPEARANCE CLEAR; URINE BACTERIA 81 /uL (0-1359); URINE BILIRUBIN NEGATIVE (NEGATIVE); URINE COLOR YELLOW; URINE GLUCOSE (UA) NEGATIVE (NEGATIVE); URINE KETONE NEGATIVE (NEGATIVE); URINE LEUK ESTERASE NEGATIVE (NEGATIVE); URINE NITRITE NEGATIVE (NEGATIVE); URINE PROTEIN NEGATIVE (NEGATIVE); URINE RBC 31 /uL (0-23.9); URINE UROBILINOGEN 0.2 mg/dL (0.2-1.0); URINE WBC 2 /uL (0-25.8)
[2025-02-12 23:42] LABS: ABSOLUTE IMMATURE GRANULOCYTES 0.03 x10^3/uL (0.0-0.031); BASOPHILS # 0.04 x10^3/uL (0.01-0.08); EOSINOPHIL % 2.8 % (0.7-5.8); EOSINOPHILS # 0.24 x10^3/uL (0.04-0.36); HEMATOCRIT 36.6 % (34.1-44.9); HEMOGLOBIN 11.5 g/dL (11.2-15.7); MCHC 31.4 g/dl (32.2-35.5); MEAN CELL VOLUME 94.6 fl (79.4-94.8); MEAN PLT VOLUME 9.8 fl (9.4-12.3); MONOCYTE # 0.39 x10^3/uL (0.24-0.86); MONOCYTE % 4.5 % (4.7-12.5); PLATELET COUNT 314 x10^3/uL (182-369); RDW 15.4 % (12.1-16.8)
[2025-02-12 23:58] LABS: POTASSIUM 4.1 mmol/L (3.5-5.1)
[2025-02-13] LABS: CALCIUM 8.9 mg/dL (8.5-10.1)
[2025-02-13 00:01] LABS: ALBUMIN 3.4 g/dl (3.4-5.0); BLOOD UREA NITROGEN 16.2 mg/dL (7-18)
[2025-02-13 00:03] LABS: CREATININE 0.7 mg/dL (0.55-1.3)
[2025-02-13 00:05] LABS: BILIRUBIN,TOTAL 0.1 mg/dL (0.2-1); TOT PROT 6.8 g/dl (6.4-8.2)
[2025-02-13] MEDS: NITROFURANTOIN MONOHYD/M-CRYST 100 MG CAPSULE PO ONE (01:17)
[2025-02-13] MEDS ORDERED: NITROFURANTOIN MACROCRYSTAL 50 MG CAPSULE (FP) ONE (01:22)
== END 2025-02-13 02:34 | disposition home or self-care (01) ==
LOC: JER 22:56
PROC: 3E033GC Introduction of Other Therapeutic Substance into Peripheral Vein, Percutaneous Approach (ICD-10-PCS; principal; 2025-02-12)
PROC: 3E033NZ Introduction of Analgesics, Hypnotics, Sedatives into Peripheral Vein, Percutaneous Approach (ICD-10-PCS; 2025-02-12)
PROC: 3E033GC Introduction of Other Therapeutic Substance into Peripheral Vein, Percutaneous Approach (ICD-10-PCS; 2025-02-12)
DX: N83.201 Unspecified ovarian cyst, right side (principal); N39.0 Urinary tract infection, site not specified; R11.2 Nausea with vomiting, unspecified
CPT/HCPCS: 36415; 76817-TC; 80053; 81003; 83690; 84702; 84703; 85025; 87086; 99285-25; J0131

== ENCOUNTER 2025-03-11 17:52 | Emergency (ER) | payer SELFPAY ==
[2025-03-11 18:03] VITALS: BP 112/74; PULSE 75; RESP 18; TEMP 98.1; BMI 37.0
[2025-03-11] MEDS ORDERED: ACETAMINOPHEN 500 MG TABLET (FP) ONE (18:44)
[2025-03-11] MEDS: ACETAMINOPHEN 500 MG TABLET (FP) PO ONE (18:46)
[2025-03-11] MEDS ORDERED: IBUPROFEN 600 MG TABLET (FP) PO ONE (19:30)
[2025-03-11] MEDS: IBUPROFEN 600 MG TABLET (FP) PO ONE (19:31)
== END 2025-03-11 20:31 | disposition home or self-care (01) ==
LOC: JER 17:52
DX: M79.671 Pain in right foot (principal)
CPT/HCPCS: 73610-TC-RT-FY; 73630-TC-RT-FY; 84703; 99284-25

== ENCOUNTER 2025-05-11 18:31 | Emergency (ER) | payer SELFPAY ==
[2025-05-11 18:40] VITALS: BP 102/51; PULSE 69; RESP 20; TEMP 98.1; BMI 34.0
[2025-05-11] MEDS ORDERED: METOCLOPRAMIDE HCL INJECTION 10 MG/2 ML VIAL ONE (19:59)
[2025-05-11] MEDS ORDERED: ACETAMINOPHEN INJECTION 100 ML ONE (19:59)
[2025-05-11 20:37] LABS: ABSOLUTE IMMATURE GRANULOCYTES 0.02 x10^3/uL (0.0-0.031); BASOPHILS # 0.04 x10^3/uL (0.01-0.08); EOSINOPHIL % 3.5 % (0.7-5.8); EOSINOPHILS # 0.27 x10^3/uL (0.04-0.36); MCHC 31.8 g/dl (32.2-35.5); MEAN CELL VOLUME 93.5 fl (79.4-94.8); MEAN PLT VOLUME 10.6 fl (9.4-12.3); MONOCYTE # 0.44 x10^3/uL (0.24-0.86); MONOCYTE % 5.7 % (4.7-12.5); RDW 13.3 % (12.1-16.8)
[2025-05-11] MEDS: LACTATED RINGERS SOLUTION 1000 ML INFUS.BAG IV ONE (20:38)
[2025-05-11] MEDS: METOCLOPRAMIDE HCL INJECTION 10 MG/2 ML VIAL IVPUSH ONE (20:38)
[2025-05-11] MEDS: ACETAMINOPHEN 1000 MG/100 ML BAG IVPB ONE (20:39)
[2025-05-11 21:00] LABS: CO2 26.0 mmol/L (21-32); GLUCOSE,RANDOM 96.0 mg/dL (74-106)
[2025-05-11 21:02] LABS: SGPT/ALT 35.0 U/L (13-61)
[2025-05-11 21:04] LABS: CREATININE 0.6 mg/dL (0.55-1.3); SGOT/AST 36.0 U/L (15-37)
[2025-05-11 21:05] LABS: ALK PHOS 67.0 U/L (45-117); TOT PROT 7.5 g/dl (6.4-8.2)
[2025-05-11 21:07] LABS: LDL CHOLESTEROL (ONLY SJRH) 166 mg/dL (5-100)
[2025-05-11 23:03] LABS: HIV INTERPRETATION NEGATIVE (NEGATIVE)
[2025-05-11 23:06] LABS: HCV DIAGNOSTIC IN-HOUSE W/RFLX NON-REACTIVE (NONREACTIVE)
== END 2025-05-12 01:40 | disposition left against medical advice (07) ==
LOC: JER 18:31
PROC: 3E033NZ Introduction of Analgesics, Hypnotics, Sedatives into Peripheral Vein, Percutaneous Approach (ICD-10-PCS; principal; 2025-05-11)
PROC: 3E033GC Introduction of Other Therapeutic Substance into Peripheral Vein, Percutaneous Approach (ICD-10-PCS; 2025-05-11)
DX: R51.9 Headache, unspecified (principal); R07.89 Other chest pain; R29.898 Other symptoms and signs involving the musculoskeletal system; R20.2 Paresthesia of skin; R11.2 Nausea with vomiting, unspecified; R20.0 Anesthesia of skin; R68.83 Chills (without fever)
CPT/HCPCS: 36415; 70450-TC; 70496-TC; 70498-TC; 71045-TC-FY; 80053; 80061; 83036; 83735; 84484; 84703; 85025; 86803; 86850; 86900; 86901; 87389; 93005; 93010; 99285-25